=== PATIENT | female | born 1980 | race Hispanic/Latino ===

== ENCOUNTER 2024-03-22 23:59 | Emergency (ER) | payer MEDICARE, OTHER ==
[~2024-03-22] VITALS: Ht 157.5 cm; Wt 113.4 kg
[~2024-03-22 23:59] MED LIST: CEFDINIR300 MG PO; FIORICET 50-301 EACH PO; ONDANSETRON ODT4 MG SL; XOFLUZA80 MG PO
[2024-03-23 00:17] VITALS: PULSE 82; RESP 19; TEMP 98.6
[2024-03-23 00:37] LABS: BASOPHILS % 0.2 % (0.0-1.0); EOSINOPHILS # (AUTO) 0.1 (0.0-0.4); EOSINOPHILS % 0.6 % (0.0-6.0); HEMATOCRIT 40.7 % (34.2-44.1); HEMOGLOBIN 13.4 g/dL (12.0-16.0); LYMPHOCYTES # (AUTO) 2.6 (1.0-3.2); LYMPHOCYTES % 20.8 % (18.0-39.1); MEAN CORPUSCULAR HGB CONC 32.9 g/dL (31-35); MEAN CORPUSCULAR VOLUME 91.3 fL (81-99); MONOCYTES # (AUTO) 0.7 (0.2-0.8); MONOCYTES % 5.8 % (4.4-11.3); NEUTROPHILS # (AUTO) 8.9 (2.1-6.9); NEUTROPHILS % 72.2 % (38.7-80.0); PLATELET COUNT 347 x10e3/uL (140-360); RED BLOOD COUNT 4.46 x10e6/uL (3.6-5.1); RED CELL DISTRIBUTION WIDTH 13.3 % (11.7-14.4); WHITE BLOOD COUNT 12.35 x10e3/uL (4.8-10.8)
[2024-03-23] MEDS: METOCLOPRAMIDE HCL 10 MG/2ML VIAL IV STA (00:37)
[2024-03-23] MEDS: KETOROLAC TROMETHAMINE 30 MG/ML VIAL IV STA (00:37)
[2024-03-23] MEDS: DIPHENHYDRAMINE HCL INJ 50 MG/ML VIAL IV STA (00:37)
[2024-03-23] MEDS: METHYLPREDNISOLONE SOD SUCC 125 MG/2ML VIAL IV STA (00:37)
[2024-03-23] MEDS: SODIUM CHLORIDE 0.9% 1000ML 1,000 ML IV STA (00:38)
[2024-03-23 00:54] LABS: ALBUMIN 4.3 g/dL (3.5-5.0); ALBUMIN/GLOBULIN RATIO 1.1 (0.8-2.0); ANION GAP 12.8 mmol/L (8-16); BILIRUBIN,TOTAL 0.4 mg/dL (0.2-1.2); CALCIUM 9.5 mg/dL (8.4-10.2); CREATININE, SERUM 0.76 mg/dL (0.57-1.11); POTASSIUM 3.8 mmol/L (3.5-5.1); TOTAL PROTEIN 8.2 g/dL (6.5-8.1)
[2024-03-23] MEDS ORDERED: ONDANSETRON ODT4 MG PO (01:46)
[2024-03-23 01:49] VITALS: BP 121/90; PULSE 65; RESP 19; TEMP 98.9; O2SAT 97
== END 2024-03-23 01:54 | disposition home or self-care (01) ==
LOC: ER 03-23 00:05
DX: R51.9 Headache, unspecified (principal); R11.2 Nausea with vomiting, unspecified; F32.A Depression, unspecified; F41.9 Anxiety disorder, unspecified; Z11.52 Encounter for screening for COVID-19
CPT/HCPCS: 36415; 70450; 80053; 85025; 99284; J1200; J1885; J2765; J2919; J7030; U0002

== ENCOUNTER 2025-02-19 19:39 | Emergency (ER) | payer OTHER, MEDICARE ==
[~2025-02-19] VITALS: Ht 157.5 cm; Wt 111.1 kg
[~2025-02-19 19:39] MED LIST changes: +ONDANSETRON ODT4 MG PO
[2025-02-19 19:50] VITALS: PULSE 78; RESP 18; TEMP 99.2
[2025-02-19] MEDS ORDERED: ONDANSETRON HCL 4 MG ORAL DISINTEGRATING TAB ONE (20:04)
[2025-02-19 20:22] LABS: STREPTOCOCCUS GRP A ANTIGEN NEGATIVE (NEGATIVE)
[2025-02-19 20:23] LABS: CORONAVIRUS COVID-19 AG NEGATIVE (NEGATIVE)
[2025-02-19] MEDS: DEXAMETHASONE SOD PHOS 10 MG/1 ML VIAL IM STA (20:26)
[2025-02-19] MEDS: ACETAMINOPHEN 325 MG TAB PO STA (20:27)
[2025-02-19] MEDS: ONDANSETRON HCL 4 MG ORAL DISINTEGRATING TAB PO ONE (20:27)
[2025-02-19] MEDS ORDERED: VENTOLIN HFA18 GM INH (21:09)
[2025-02-19] MEDS ORDERED: AZITHROMYCIN250 MG PO (21:09)
[2025-02-19] MEDS ORDERED: PREDNISONE20 MG PO (21:09)
[2025-02-19 21:57] VITALS: BP 126/78; PULSE 84; RESP 17; TEMP 98.7; O2SAT 99
== END 2025-02-19 21:45 | disposition home or self-care (01) ==
LOC: ER 19:46
DX: R05.9 Cough, unspecified (principal); J06.9 Acute upper respiratory infection, unspecified; F41.9 Anxiety disorder, unspecified; F32.A Depression, unspecified; Z11.52 Encounter for screening for COVID-19
CPT/HCPCS: 71046; 83518; 87070; 87428; 99283; J1100; Q0162